=== PATIENT | female | born 1950 | race Caucasian/White ===

== ENCOUNTER → 2019-05-23 | Outpatient (CLI) | payer MEDICARE ==
--- NOTE | 2019-05-23 16:14 | RAD ---
CERVICAL SPINE 2-3V DATE: 05/23/2019 12:00 AM INDICATION: Neck pain COMPARISON: None. FINDINGS: The cervical spine is visualized to the level of the cervicothoracic junction on the lateral views. Bones/Alignment: No evidence of acute fracture. Trace anterolisthesis at C3-4 and C4-5. Trace retrolisthesis at C6-7. Normal alignment of the lateral masses of C1 on C2. Joints: Multilevel degenerative disc disease, worst and moderate at C5-6 and C6-7. Multilevel facet arthropathy. Soft tissue: No significant prevertebral soft tissue swelling. IMPRESSION: Mild to moderate cervical spondylosis. Electronically signed by: Rod Zarate MD (05/23/2019 4:11 PM) [id number]
--- NOTE | 2019-05-23 16:15 | RAD ---
THORACIC SPINE 3V DATE: 05/23/2019 12:00 AM INDICATION: Back pain COMPARISON: None. FINDINGS: The upper thoracic vertebrae are obscured on the lateral view by overlying soft tissue and osseous structures. Bones/Alignment: No evidence of acute compression fracture. S-shaped thoracolumbar curvature. Joints: Mild to moderate degenerative disc disease, worse along the concave margins of the scoliosis. Miscellaneous: None. IMPRESSION: S-shaped thoracolumbar scoliosis and mild to moderate thoracic spondylosis. Electronically signed by: Rod Zarate MD (05/23/2019 4:13 PM) [id number]
--- NOTE | 2019-05-23 16:16 | RAD ---
LUMBAR SPINE 2-3V DATE: 05/23/2019 12:00 AM INDICATION: Back pain COMPARISON: None. FINDINGS: Bones/Alignment: No evidence of acute compression fracture. S-shaped thoracolumbar scoliosis. Joints: Severe multilevel degenerative disc disease, greatest along the concave margins of the scoliosis Miscellaneous: Large colonic stool burden. IMPRESSION: S-shaped thoracolumbar scoliosis and advanced lumbar spondylosis. Electronically signed by: Rod Zarate MD (05/23/2019 4:14 PM) [id number]
== END | disposition home or self-care (01) ==
LOC: PMG 12:50
PROVIDERS: ATTEND Family Medicine
DX: M47.812 Spondylosis without myelopathy or radiculopathy, cervical region (principal); M50.322 Other cervical disc degeneration at C5-C6 level; M41.85 Other forms of scoliosis, thoracolumbar region; M47.815 Spondylosis without myelopathy or radiculopathy, thoracolumbar region; M51.35 Other intervertebral disc degeneration, thoracolumbar region; M12.88 Other specific arthropathies, not elsewhere classified, other specified site
CPT/HCPCS: 72040; 72072; 72100